=== PATIENT | female | born 1970 | race Caucasian/White ===

== ENCOUNTER → 2019-08-02 | Outpatient (CLI) | payer OTHER | END | disposition home or self-care (01) | LOC: LAB SHORT 13:53 → PLD 13:53 | DX: N95.0 Postmenopausal bleeding (principal) | CPT/HCPCS: 88305 ==

== ENCOUNTER 2019-10-21 06:10 | Day surgery (SDC) | payer BC, OTHER ==
[~2019-10-21 06:10] MED LIST: EXEM25 PO
== END 2019-10-21 09:23 | disposition home or self-care (01) ==
PROVIDERS: Obstetrics & Gynecology
PROC: 0UDB8ZX Extraction of Endometrium, Via Natural or Artificial Opening Endoscopic, Diagnostic (ICD-10-PCS; principal; 2019-10-21 07:30)
DX: N85.00 Endometrial hyperplasia, unspecified (principal); N95.0 Postmenopausal bleeding; R93.89 Abnormal findings on diagnostic imaging of other specified body structures; Z85.3 Personal history of malignant neoplasm of breast

== ENCOUNTER 2021-01-07 07:45 | Day surgery (SDC) | payer BC ==
[~2021-01-07] VITALS: Ht 172.7 cm; Wt 87.4 kg
[~2021-01-07 07:45] MED LIST changes: +VITAMIN D325 MC3 PO
== END 2021-01-07 09:55 | disposition home or self-care (01) ==
LOC: ORSCSDS 07:45
PROVIDERS: Student in an Organized Health Care Education/Training Program
PROC: 0DBM8ZX Excision of Descending Colon, Via Natural or Artificial Opening Endoscopic, Diagnostic (ICD-10-PCS; principal; 2021-01-07 09:00)
PROC: 0DBC8ZX Excision of Ileocecal Valve, Via Natural or Artificial Opening Endoscopic, Diagnostic (ICD-10-PCS; principal; 2021-01-07 09:00)
DX: Z12.11 Encounter for screening for malignant neoplasm of colon (principal); D12.4 Benign neoplasm of descending colon; D12.0 Benign neoplasm of cecum; Z85.3 Personal history of malignant neoplasm of breast
CPT/HCPCS: 88305; J2704; J7120

== ENCOUNTER → 2021-11-10 | Outpatient (CLI) | payer BC | END | disposition home or self-care (01) | LOC: LAB SHORT 14:54 → PLD 14:54 | DX: D22.61 Melanocytic nevi of right upper limb, including shoulder (principal) | CPT/HCPCS: 88305 ==

== ENCOUNTER → 2022-06-23 | Outpatient (CLI) | payer BC | END | disposition home or self-care (01) | LOC: LAB SHORT 18:23 → LAB 18:23 | DX: N39.0 Urinary tract infection, site not specified (principal) | CPT/HCPCS: 87077; 87086; 87186 ==